=== PATIENT | male | born 1990 | race Caucasian/White ===

== ENCOUNTER 2020-01-03 08:00 | Outpatient (RCR) | payer OTHER, SELFPAY ==
--- NOTE | 2020-02-06 07:22 | MHC.PT.DC ---
[facility] [place] Office [place] Office [place] Office [address] Claudia Altamirano [address] [phone] F: [phone] F: [phone] F: [phone] F: [phone] Physical Therapy Discharge Report Diagnosis: Date of Surgery: NA Date of Evaluation: 12/19/19 Date of Discharge: Treatments to Date: 4 Cancellations to Date: 1 No Shows to Date: 0 Discharge Status: Visit Non-compliance Discharge Summary: Pt decided to not follow up with future appts. Electronically signed by: Dillan Zavaleta PT Please sign and return to therapist. Thank you for your referral.
== END 2020-02-06 07:25 | disposition home or self-care (01) ==
LOC: HO.PTCHIC 08:00
PROVIDERS: PCP Internal Medicine; Visit Provider Internal Medicine
DX: M54.2 Cervicalgia (principal); R12 Heartburn
CPT/HCPCS: 97110; 97140

== ENCOUNTER 2020-01-03 09:16 | Outpatient (REF) | payer OTHER, SELFPAY ==
--- NOTE | 2020-01-03 | FL_ITS ---
EXAMINATION: XR FLUOROSCOPY UPPER GI WITH AIR CLINICAL INFORMATION: Heartburn COMPARISON: None TECHNIQUE: Upper GI was performed using thin and thick barium and effervescent granules. FINDINGS: There is mild gastroesophageal reflux. The esophagus is otherwise unremarkable. No hernia, mucosal irregularity, mass or stricture is seen. The stomach and duodenum are normal-appearing. No fold thickening, mass, ulcer or stricture is seen. FLUOROSCOPY TIME: 0.8 minutes DOSE AREA PRODUCT: 10.2 Alvarado per centimeter squared. 43 mgy total dose. 25 saved fluoroscopic images. IMPRESSION: Gastroesophageal reflux otherwise unremarkable exam.
== END 2020-01-03 09:17 | disposition home or self-care (01) ==
LOC: HO.XRAY 09:16
PROVIDERS: PCP Internal Medicine; Visit Provider Internal Medicine
DX: R12 Heartburn (principal)
CPT/HCPCS: 74246

== ENCOUNTER 2020-02-18 10:33 | Outpatient (REF) | payer OTHER, SELFPAY ==
[2020-02-18 14:32] LABS: Alanine Aminotransferase 19 U/L (0-40); Albumin Level 4.6 g/dL (3.5-5.0); Alkaline Phosphatase 68 U/L (39-117); Anion Gap 15 (12-20); Aspartate Amino Transferase 14 U/L (5-37); Bilirubin Total 0.5 mg/dL (0.0-1.0); Blood Urea Nitrogen 11 mg/dL (9-16); Calcium 9.2 mg/dL (8.4-10.2); Carbon Dioxide 26 mmol/L (22-29); Chloride 105 mmol/L (96-108); Cholesterol 173 mg/dL; Estimated Glomerular Filt Rate > 60; Glucose Fasting 81 mg/dL (60-99); HDL Cholesterol 35 mg/dL; LDL Cholesterol Calculated 127 mg/dl; Potassium 4.7 mmol/l (3.3-5.1); Sodium 141 mmol/L (135-145); Total Protein 7.4 g/dL (6.5-8.0); Triglycerides 55 mg/dL
[2020-02-25 14:52] LABS: Testosterone, Free 77.3 pg/mL (35.0-155.0); Testosterone, Total 477 ng/dL (250-1100)
== END 2020-02-18 10:34 | disposition home or self-care (01) ==
LOC: HO.HMGCLDS 10:33
PROVIDERS: PCP Internal Medicine; Visit Provider Internal Medicine
DX: E66.01 Morbid (severe) obesity due to excess calories (principal); R12 Heartburn; Z00.01 Encounter for general adult medical examination with abnormal findings; N52.9 Male erectile dysfunction, unspecified
CPT/HCPCS: 80053; 80061; 84402; 84403; 84443

== ENCOUNTER → 2020-12-29 10:25 | Outpatient (BNVA) | payer OTHER, SELFPAY | PROVIDERS: PCP Internal Medicine; Referring Provider Internal Medicine; Visit Provider Psychiatry & Neurology Neurology ==

== ENCOUNTER → 2021-02-15 19:30 | Outpatient (REF) | payer OTHER, SELFPAY | LOC: HO.SL 19:30 | PROVIDERS: PCP Internal Medicine; Visit Provider Psychiatry & Neurology Neurology | DX: E66.01 Morbid (severe) obesity due to excess calories (principal); R06.81 Apnea, not elsewhere classified; R06.83 Snoring | CPT/HCPCS: 95810 ==

== ENCOUNTER 2021-03-28 09:07 | Outpatient (REF) | payer OTHER, SELFPAY ==
[2021-03-28 09:47] LABS: Binax Internal Control QC Valid; Binax Lot number: 9864; Binax Now Covid-19 Ag Negative (Negative)
== END 2021-03-28 09:08 | disposition home or self-care (01) ==
LOC: HO.LAB 09:07
PROVIDERS: Visit Provider Internal Medicine
DX: Z20.822 Contact with and (suspected) exposure to COVID-19 (principal)
CPT/HCPCS: 36415; C9803

== ENCOUNTER 2021-04-06 14:59 | Outpatient (REF) | payer OTHER, SELFPAY ==
[2021-04-06 16:11] LABS: MANUAL DIFF FLAG NO
[2021-04-06 16:25] LABS: Basophils Absolute Auto 0.1 X10*3/uL (0.0-0.2); Basophils Percent Auto 0.7 % (0-2); Eosinophils Absolute Auto 0.5 X10*3/uL (0.0-0.4); Hematocrit 47.9 % (42.0-52.0); Hemoglobin 15.5 g/dl (14.0-18.0); Imm Gran Abs Auto 0.04 X10*3/uL (0.00-0.03); Imm Gran Pct Auto 0.4 % (0.0-0.4); Lymphocytes Absolute Auto 3.1 X10*3/uL (1.2-4.9); Lymphocytes Percent Auto 32.7 % (20-40); Mean Corpuscular HGB Conc 32.4 g/dl (31.0-36.0); Mean Corpuscular Hemoglobin 28.3 pg (27.0-33.0); Mean Corpuscular Volume 87.6 fL (80.0-98.0); Mean Platelet Volume 9.9 fL (9.4-12.4); Monocytes Absolute Auto 0.9 X10*3/uL (0.1-1.2); Monocytes Percent Auto 9.3 % (2-11); Neutrophils Absolute Auto 4.9 x10*3/uL (2.0-8.3); Neutrophils Percent Auto 51.9 % (45-73); Platelet Count 381 X10*3/uL (160-400); Red Blood Count 5.47 X10*6/uL (4.60-5.80); Red Cell Distribution Width 12.9 % (11.0-16.0); White Blood Count 9.5 X10*3/uL (4.8-10.8)
[2021-04-06 16:50] LABS: Alanine Aminotransferase 20 U/L (0-40); Albumin Level 4.2 g/dL (3.5-5.0); Alkaline Phosphatase 62 U/L (39-117); Anion Gap 9 (12-20); Aspartate Amino Transferase 11 U/L (5-37); Bilirubin Total 0.3 mg/dL (0.0-1.0); Blood Urea Nitrogen 12 mg/dL (9-16); Calcium 9.8 mg/dL (8.4-10.2); Carbon Dioxide 32 mmol/L (22-29); Chloride 105 mmol/L (96-108); Estimated Glomerular Filt Rate > 60; Glucose Random 86 mg/dL (60-115); Potassium 4.8 mmol/L (3.3-5.1); Sodium 141 mmol/L (135-145); Total Protein 7.3 g/dL (6.5-8.0)
[2021-04-06 17:18] LABS: Ferritin 103 ng/mL (20-250)
[2021-04-06 17:23] LABS: Thyroid Stimulating Hormone 1.17 uIU/mL (0.32-4.0)
== END 2021-04-06 15:00 | disposition home or self-care (01) ==
LOC: HO.LAB 14:59
PROVIDERS: PCP Internal Medicine; Referring Provider Internal Medicine; Visit Provider Psychiatry & Neurology Neurology
DX: G47.61 Periodic limb movement disorder (principal); E66.01 Morbid (severe) obesity due to excess calories; G25.81 Restless legs syndrome; Z87.891 Personal history of nicotine dependence
CPT/HCPCS: 36415; 80053; 82728; 84443; 85025

== ENCOUNTER → 2021-07-06 14:38 | Outpatient (BNVA) | payer OTHER, SELFPAY | PROVIDERS: PCP Internal Medicine; Visit Provider Psychiatry & Neurology Neurology | DX: Z13.89 Encounter for screening for other disorder (principal) ==

== ENCOUNTER 2022-06-14 16:14 | Outpatient (AMB) | payer OTHER, SELFPAY ==
--- NOTE | 2022-06-14 16:09 | MHC.PC.OV ---
Intake Visit Reasons: f/u depression/anxiety android [phone] Intake Note: Pt is having a telehealth visit to f/u depression/anxiety Allergies No Known Allergies Allergy (Verified 06/14/22 16:09) Medication List - Last Reconciled 06/14/22 by Jennifer Paul MD buspirone 10 mg PO TID magnesium oxide 400 mg PO DAILY omeprazole 20 mg PO DAILY sildenafil 100 mg PO DAILY PRN Tobacco use date assessed: 06/14/22 HPI f/u depression/anxiety android [phone] HPI Details Tele health visit made with 33-year-old male, here to follow-up on his depression and anxiety disorder currently on BuSpar 10 mg taken 1 tablet 3 times a day, which patient states has been helping [facility] Medical History Anxiety and depression Cervicalgia Erectile dysfunction Heartburn Loud snoring Morbid obesity Surgical History History of adenectomy History of tonsillectomy Family History Father HTN (hypertension) Asthma Crohn's disease Substance use disorder Sleep apnea Mother Bipolar disorder Substance use disorder Mental health disorder COPD (chronic obstructive pulmonary disease) Sister No problems noted. Social History Housing: Apartment Alcohol intake: current Alcohol intake frequency: a few times a month Patient Tobacco Use Status: Former Tobacco user Years Smoked: ages [age] havent smoked since e-Cigarette/Vaping Use: Never Used service: No Current occupational status: employed Cognitive needs: No Hearing needs: No Vision needs: Yes Questionnaire PHQ-9 Over the last 2 weeks, how often have you been bothered by any of the following problems? 1. Little interest or pleasure in doing things: not at all 2. Feeling down, depressed, or hopeless: not at all 3. Trouble falling or staying asleep, or sleeping too much: not at all 4. Feeling tired or having little energy: several days 5. Poor appetite or overeating: several days 6. Feeling bad about yourself - or that you are a failure or have let yourself or your family down: not at all 7. Trouble concentrating on things, such as reading the newspaper or watching television: not at all 8. Moving or speaking so slowly that other people could have noticed. Or the opposite - being so fidgety or restless that you have been moving around a lot more than usual: not at all 9. Thoughts that you would be better off or of hurting yourself in some way: not at all Total score: 2 Depression Screening Interpretation: Positive (Stable on current treatment) Depression Screening Follow-up: Existing condition and In treatment Source: Developed by Drs. Itz Haynes, Julia Jaun, Darion Angeles and colleagues, with an educational edward from [employer]. Thrive Questionnaire Declines Thrive assessment: No Date Thrive assessed: 06/14/22 I am a: Patient What is your living situation today?: I have a steady place to live Within the past 12 months, did the food you bought not last and you didn't have the money to get more?: Never true Within the past 12 months, did you worry whether your food would run out before you got money to buy more?: Never true Do you have trouble paying for medicines?: No Do you have trouble getting transportation to medical appointments?: No Do you have trouble paying your heating and electricity bill?: No Do you have trouble taking care of your child, family member or friend?: No Do you have trouble with day-to-day activities such as bathing, preparing meals, shopping, managing finances, etc.?: No Are you currently unemployed and looking for a job?: No Are you interested in more education?: No AUDIT C Alcohol Use Questionnaire (AUDIT-C) 1. How often do you have a drink containing alcohol?: 2-3 times a week 2. How many drinks containing alcohol do you have on a typical day when you are drinking?: 1 or 2 3. How often do you have six or more drinks on one occasion?: Never Total Score: 3 CARLOS-7 AMB Questionnaire CARLOS-7 Date CARLOS - 7 assessed: 06/14/22 Feeling nervous, anxious, or on edge: 1 = Several days Not being able to stop or control worryin = Not at all Worrying too much about different things: 0 = Not at all Trouble relaxin = Not at all Being so restless that it is hard to sit still: 0 = Not at all Becoming easily annoyed or irritable: 1 = Several days Feeling afraid as if something awful might happen: 0 = Not at all Total CARLOS-7 score (0-4 normal; 5-9 mild; 10-14 moderate; 15-21 severe): 2 Source: Developed by Drs. Itz Haynes, Julia Juan, Darion Angeles and colleagues, with an educational edward from [employer]. CARLOS-7 Assessment Billing CARLOS-7 Assessment Tool: CARLOS-7 Assessment 85288 Review of Systems Const Reports no additional complaints ENT Reports no additional complaints Card Denies chest pain, Denies lightheadedness and Denies dyspnea Resp Denies chest congestion, Denies cough and Denies dyspnea GI Reports no additional complaints and Denies heartburn Reports no additional complaints Psych Reports as per HPI Physical exam (Primary Care) Tobacco/Smoking Status: Tobacco use Status Tobacco use date assessed 06/14/22 06/14/22 16:14 Patient Tobacco Use Status Former Tobacco user 06/14/22 16:14 e-Cigarette/Vaping Use Never Used 06/14/22 16:14 PHQ-9: PHQ-9 Score PHQ-9: Total score 2 09/17/23 21:30 Depression Screening Interpretation: Positive (Stable on current treatment) Depression Screening Follow-up: Existing condition and In treatment Thrive Assessment: Date of Thrive Assessment Date Thrive assessed 06/14/22 06/14/22 16:14 Telehealth Telehealth Location of provider rendering services: practice address Location of patient: address on file Patient Identification confirmed using: Name, : Yes Telehealth method: video Patient verbally consented to treatment: Yes Patient verbally consented to billing insurance company: Yes Patient informed of any privacy concerns related to visit: Yes Minutes spent on Phone/Video with Pt.: 15 Assessment and Plan Assessment & Plan (1) Anxiety and depression: Code(s): F41.9 - Anxiety disorder, unspecified; F32.A - Depression, unspecified Plan: Doing well on buspirone, 10 mg taken 1 tablet 3 times a day. Refill sent Medications: Refilled buspirone 10 mg PO TID 90 tabs 5RF F41.9 - Anxiety disorder, unspecified, F32.A - Depression, unspecified Coding Level of Care Code Tele Est Pt Level 3 (17351) Diagnoses Anxiety and depression F41.9; F32.A Additional Codes CARLOS-7 Assessment Billing - CARLOS-7 Assessment Tool: CARLOS-7 Assessment 43474 ([id number])
== END 2022-06-14 17:00 | disposition home or self-care (01) ==
LOC: HO.HMGC 16:14
PROVIDERS: PCP Internal Medicine; Visit Provider Internal Medicine
DX: F41.9 Anxiety disorder, unspecified (principal); F32.A Depression, unspecified
CPT/HCPCS: 99499

== ENCOUNTER 2023-09-20 12:58 | Outpatient (AMB) | payer BC, SELFPAY ==
--- NOTE | 2023-09-20 13:07 | MHC.PC.OV ---
Vital Signs 09/20/23 13:10 Height 5 ft 8 in Weight 372 lb BMI 56.6 BP 118/80 Blood Pressure Location Lt brachial Position Sitting Pulse 93 Pulse Source Pulse Oximeter Pulse Oximetry (%) 98 Oxygen Delivery Method Room Air Intake Visit Reasons: Follow up meds Intake Note: Pt is here today f/u meds and c/o bilateral knee discomfort Allergies No Known Allergies Allergy (Verified 09/20/23 13:31) Medication List - Last Reconciled 09/20/23 by Jennifer Paul MD buspirone 10 mg PO TID magnesium oxide 400 mg PO DAILY omeprazole 20 mg PO DAILY sildenafil 100 mg PO DAILY PRN Tobacco use date assessed: 09/20/23 Dental Screening Dental Screen Date: 09/20/23 Did you have a dental visit in the last 12 months?: No Was dental information given to patient?: No HPI Follow up meds HPI Details 33-year-old male with anxiety depression, here today for follow-up. Has been taking buspirone 10 mg 3 times a day which has been helping control his anxiety depression. Denies any adverse reactions when taking medication. He is here today complaining of numbness and tingling on anterior aspect of left knee, which started after working at [employer] where he is on his feet all day, 5 days a week. He also thinks that he might be compensating for this by putting more of his weight on his right side now has pain and stiffness in his right ankle. Has been taking ibuprofen which affords temporary relief [facility] Medical History Anxiety and depression Loud snoring Erectile dysfunction Cervicalgia Heartburn Morbid obesity Surgical History History of adenectomy History of tonsillectomy Family History Father HTN (hypertension) Asthma Crohn's disease Substance use disorder Sleep apnea Mother Bipolar disorder Substance use disorder Mental health disorder COPD (chronic obstructive pulmonary disease) Sister No problems noted. Social History Housing: Apartment Alcohol intake: current Alcohol intake frequency: a few times a month Patient Tobacco Use Status: Former Tobacco user Years Smoked: ages [age] havent smoked since e-Cigarette/Vaping Use: Never Used service: No Current occupational status: employed Cognitive needs: No Hearing needs: No Vision needs: Yes Questionnaire PHQ-9 Over the last 2 weeks, how often have you been bothered by any of the following problems? 1. Little interest or pleasure in doing things: several days 2. Feeling down, depressed, or hopeless: not at all 3. Trouble falling or staying asleep, or sleeping too much: several days 4. Feeling tired or having little energy: several days 5. Poor appetite or overeating: not at all 6. Feeling bad about yourself - or that you are a failure or have let yourself or your family down: not at all 7. Trouble concentrating on things, such as reading the newspaper or watching television: several days 8. Moving or speaking so slowly that other people could have noticed. Or the opposite - being so fidgety or restless that you have been moving around a lot more than usual: not at all 9. Thoughts that you would be better off or of hurting yourself in some way: not at all Total score: 4 Depression Screening Interpretation: Positive (Better controlled on buspirone takes 10 mg 1 tablet 3 times a day) Depression Screening Follow-up: Existing condition and In treatment Depression Screening Done: Yes 19043 - PHQ-9 Billing: Yes Source: Developed by Drs. Itz Haynes, Julia Juan, Darion Angeles and colleagues, with an educational edward from [employer]. Thrive Questionnaire Date Thrive assessed: 09/20/23 I am a: Patient What is your living situation today?: I have a steady place to live Within the past 12 months, did the food you bought not last and you didn't have the money to get more?: Never true Within the past 12 months, did you worry whether your food would run out before you got money to buy more?: Never true Do you have trouble paying for medicines?: No Do you have trouble paying your heating and electricity bill?: No Do you have trouble taking care of your child, family member or friend?: No Do you have trouble with day-to-day activities such as bathing, preparing meals, shopping, managing finances, etc.?: No Are you currently unemployed and looking for a job?: No Are you interested in more education?: No THRIVE Score: 0 AUDIT C Alcohol Use Questionnaire (AUDIT-C) 1. How often do you have a drink containing alcohol?: 2-3 times a week 2. How many drinks containing alcohol do you have on a typical day when you are drinking?: 1 or 2 3. How often do you have six or more drinks on one occasion?: Never Total Score: 3 CARLOS-7 AMB Questionnaire CARLOS-7 Date CARLOS - 7 assessed: 09/20/23 Feeling nervous, anxious, or on edge: 1 = Several days Not being able to stop or control worryin = Not at all Worrying too much about different things: 0 = Not at all Trouble relaxin = Not at all Being so restless that it is hard to sit still: 0 = Not at all Becoming easily annoyed or irritable: 0 = Not at all Feeling afraid as if something awful might happen: 0 = Not at all Total CARLOS-7 score (0-4 normal; 5-9 mild; 10-14 moderate; 15-21 severe): 1 Source: Developed by Drs. Itz Haynes, Julia Juan, Darion Angeles and colleagues, with an educational edward from [employer]. CARLOS-7 Assessment Billing CARLOS-7 Assessment Tool: CARLOS-7 Assessment 01004 Review of Systems Const Reports as per HPI, Denies headache(s) and Reports weight gain (70 lb in 7 months) ENT Denies dizziness, Denies headache(s), Denies nasal congestion and Denies post nasal drip Card Denies chest pain, Denies irregular heart rhythm and Denies leg edema Resp Reports no additional complaints GI Reports no additional complaints Reports no additional complaints Musc Reports as per HPI Neuro Denies dizziness and Denies headache(s) Psych Reports as per HPI Physical exam (Primary Care) Vital Signs: Last Vital Signs Pulse 93 09/20/23 13:10 BP 118/80 09/20/23 13:10 Pulse Ox 98 09/20/23 13:10 Oxygen Delivery Method Room Air 09/20/23 13:10 BMI result Body Mass Index 56.6 Tobacco/Smoking Status: Tobacco use Status Tobacco use date assessed 09/20/23 09/20/23 13:15 Patient Tobacco Use Status Former Tobacco user 09/20/23 13:09 e-Cigarette/Vaping Use Never Used 09/20/23 13:09 Depression Screening Interpretation: Positive (Better controlled on buspirone takes 10 mg 1 tablet 3 times a day) Depression Screening Follow-up: Existing condition and In treatment Thrive Assessment: Date of Thrive Assessment Date Thrive assessed 09/20/23 09/20/23 13:15 Const Other: Alert oriented x3, no acute distress noted ambulatory normal gait, morbidly obese Neck Neck: Yes full ROM, Yes no lymphadenopathy and Yes supple Resp Auscultation: clear to auscultation bilaterally Cardio Other: S1-S2 present regular rate and rhythm Extrem Other: No gross bone deformity, no drugs no joint swelling seen, positive crepitus in both knees Psych Appearance: grossly normal and well kempt Mental Status: mental status grossly normal Speech and movement: Normal speech and movement present Affect: normal affect Thought process: Normal thought process present Thought content: Normal thought content present Assessment and Plan Assessment & Plan (1) Arthropathy of knee: Code(s): M17.10 - Unilateral primary osteoarthritis, unspecified knee Plan: Ordered x-ray of left knee, try massaging diclofenac gel to affected joint 3 times a day as needed, may take alternating dose of Tylenol and ibuprofen, but advised patient not to take ibuprofen when using gel (2) Anxiety and depression: Code(s): F41.9 - Anxiety disorder, unspecified; F32.A - Depression, unspecified Plan: Doing well on buspirone 10 mg taken 1 tablet 3 times a day, will continue, refill sent. Orders: Orders XR knee LT 4V Today M17.10 - Unilateral primary osteoarthritis, unspecified knee Medications: Changed From buspirone Schedule next PCP appt for future refills 10 mg PO TID 90 tabs 5RF F32.A - Depression, unspecified, F41.9 - Anxiety disorder, unspecified To buspirone Schedule next PCP appt for future refills 10 mg PO TID 3 months 270 tabs 3RF F32.A - Depression, unspecified, F41.9 - Anxiety disorder, unspecified Coding Level of Care Code Est Pt Level 4 (17026) Diagnoses Arthropathy of knee M17.10 Anxiety and depression F41.9; F32.A Additional Codes CARLOS-7 Assessment Billing - CARLOS-7 Assessment Tool: CARLOS-7 Assessment 39444 ([id number])
[2023-09-20 13:10] VITALS: BP 118/80; PULSE 93; O2SAT 98; BMI 56.6
== END 2023-09-20 14:40 | disposition home or self-care (01) ==
PROVIDERS: PCP Internal Medicine; Visit Provider Internal Medicine
DX: M17.12 Unilateral primary osteoarthritis, left knee (principal); F41.9 Anxiety disorder, unspecified; F32.A Depression, unspecified
CPT/HCPCS: 99214

== ENCOUNTER 2023-09-20 13:46 | Outpatient (REF) | payer BC, SELFPAY ==
--- NOTE | ~2023-09-20 | XR_ITS ---
EXAMINATION: XR KNEE, LEFT CLINICAL INFORMATION: Unilateral primary osteoarthritis. COMPARISON: None available. TECHNIQUE: Four views of the left knee. FINDINGS: Trace joint effusion. Mild narrowing of the medial compartment. Tiny tricompartmental osteophytes. XR/XR knee LT 4V IMPRESSION: Mild degenerative changes.
== END 2023-09-20 13:47 | disposition home or self-care (01) ==
LOC: HO.HMGCX 13:46
PROVIDERS: PCP Internal Medicine; Visit Provider Internal Medicine
DX: M17.10 Unilateral primary osteoarthritis, unspecified knee (principal)
CPT/HCPCS: 73564

== ENCOUNTER 2024-02-02 15:03 | Outpatient (AMB) | payer BC, SELFPAY ==
[2024-02-02 15:06] VITALS: BP 118/80; PULSE 88; O2SAT 98; BMI 53.7
--- NOTE | 2024-02-02 15:06 | A.OFFPC_ITS ---
Vital Signs 02/02/24 15:06 Height 5 ft 8 in Weight 353 lb BMI 53.7 BP 118/80 Blood Pressure Location Rt brachial Position Sitting Pulse 88 Pulse Source Pulse Oximeter Pulse Oximetry (%) 98 Intake Visit Reasons: PE Intake Note: pt is here for PE Mental Health Therapist Required: No Accompanied by: Self / Same As Patient Allergies No Known Allergies Allergy (Verified 02/02/24 15:06) Medication List - Last Reconciled 02/02/24 by Susan Palm NP buspirone 10 mg PO TID 3 months Tobacco use date assessed: 09/20/23 Dental Screening Dental Screen Date: 09/20/23 HPI HPI Comments History of Present Illness Details 33 y/o male patient who presents for PE. Patient of Dr. Paul. Pmhx significant for Morbid Obesity, and Anxiety/Depression. Pt c/o B/L hips, Knees and feet pain due to Obesity. He has noticed that his walking has been off, because his feet hurt. Wondering if he needs to be evaluated by Podiatry for Flat Feet. Had Sleep study on 01/2021 and was told he did not have LAZARA. [facility] Medical History (Updated 02/02/24 @ 15:41 by Susan Palm NP) Arthralgia of both feet Encounter for routine adult health examination without abnormal findings Anxiety and depression Loud snoring Erectile dysfunction Cervicalgia Heartburn Morbid obesity Surgical History History of adenectomy History of tonsillectomy Family History Father HTN (hypertension) Asthma Crohn's disease Substance use disorder Sleep apnea Mother Bipolar disorder Substance use disorder Mental health disorder COPD (chronic obstructive pulmonary disease) Sister No problems noted. Social History Housing: Apartment Alcohol intake: current Alcohol intake frequency: a few times a month Patient Tobacco Use Status: Former Tobacco user Years Smoked: ages [age] havent smoked since e-Cigarette/Vaping Use: Never Used service: No Current occupational status: employed Cognitive needs: No Hearing needs: No Vision needs: Yes Questionnaire PHQ-9 Over the last 2 weeks, how often have you been bothered by any of the following problems? 1. Little interest or pleasure in doing things: several days 2. Feeling down, depressed, or hopeless: several days 3. Trouble falling or staying asleep, or sleeping too much: not at all 4. Feeling tired or having little energy: several days 5. Poor appetite or overeating: several days 6. Feeling bad about yourself - or that you are a failure or have let yourself or your family down: more than half the days 7. Trouble concentrating on things, such as reading the newspaper or watching television: several days 8. Moving or speaking so slowly that other people could have noticed. Or the opposite - being so fidgety or restless that you have been moving around a lot more than usual: several days 9. Thoughts that you would be better off or of hurting yourself in some way: not at all Total score: 8 Depression Screening Interpretation: Negative Depression Screening Done: Yes 73387 - PHQ-9 Billing: Yes Source: Developed by Drs. Itz Haynes, Julia Juan, Darion Angeles and colleagues, with an educational edward from [employer] Thrive Questionnaire Date Thrive assessed: 02/02/24 I am a: Patient What is your living situation today?: I have a steady place to live Within the past 12 months, did the food you bought not last and you didn't have the money to get more?: Never true Within the past 12 months, did you worry whether your food would run out before you got money to buy more?: Never true Do you have trouble paying for medicines?: No Do you have trouble getting transportation to medical appointments?: No Do you have trouble paying your heating and electricity bill?: No Do you have trouble taking care of your child, family member or friend?: No Do you have trouble with day-to-day activities such as bathing, preparing meals, shopping, managing finances, etc.?: Yes Are you currently unemployed and looking for a job?: No Are you interested in more education?: No Please select the resources that you would like help with: None Currently or been in a relationship where the following occur: Controlled Emotionally THRIVE Score: 1 AUDIT C Alcohol Use Questionnaire (AUDIT-C) 1. How often do you have a drink containing alcohol?: 2-4 times a month 2. How many drinks containing alcohol do you have on a typical day when you are drinking?: 3 or 4 3. How often do you have six or more drinks on one occasion?: Less than monthly Total Score: 4 Score Reviewed/Action Taken: Yes CARLOS-7 AMB Questionnaire CARLOS-7 Date CARLOS - 7 assessed: 02/02/24 Feeling nervous, anxious, or on edge: 2 = More than half the days Not being able to stop or control worryin = Several days Worrying too much about different things: 1 = Several days Trouble relaxin = More than half the days Being so restless that it is hard to sit still: 1 = Several days Becoming easily annoyed or irritable: 3 = Nearly every day Feeling afraid as if something awful might happen: 3 = Nearly every day Total CARLOS-7 score (0-4 normal; 5-9 mild; 10-14 moderate; 15-21 severe): 13 Source: Developed by Drs. Itz Haynes, Julia Juan, Darion Angeles and colleagues, with an educational edward from [employer] CARLOS-7 Assessment Billing CARLOS-7 Assessment Tool: CARLOS-7 Assessment 99226 Review of Systems Const All systems reviewed & are unremarkable except as noted in HPI and below Physical exam (Primary Care) Vital Signs: Last Vital Signs Pulse 88 02/02/24 15:06 BP 118/80 02/02/24 15:06 Pulse Ox 98 02/02/24 15:06 BMI result Body Mass Index 53.7 Tobacco/Smoking Status: Tobacco use Status Tobacco use date assessed 09/20/23 02/02/24 15:07 Patient Tobacco Use Status Former Tobacco user 02/02/24 15:07 e-Cigarette/Vaping Use Never Used 02/02/24 15:07 PHQ-9: PHQ-9 Score PHQ-9: Total score 8 02/02/24 15:14 Depression Screening Interpretation: Negative Thrive Assessment: Date of Thrive Assessment Date Thrive assessed 02/02/24 02/02/24 15:07 Currently or been in a relationship where the following occur: Controlled Emotionally Const General: comfortable and no acute distress Nutritional Appearance: obese centrally obese Orientation/consciousness: patient oriented x3 HENMT Head: Yes normocephalic Ears: external ears normal and TM's normal bilaterally General nose exam: Normal external nose present Face and sinus: Yes sinuses nontender Mouth: moist mucous membranes Throat: Yes posterior oropharynx normal Eyes Pupils: Equal, round and reactive pupils present EOM: EOMs intact bilaterally Direct Ophthalmoscopy: normal light reflex Neck Neck: Yes full ROM Resp Effort & Inspection: normal respiratory effort and able to speak in complete sentences Auscultation: clear to auscultation bilaterally and diminished lung sounds (Due to large body Habitus) Cardio Heart sounds: S1 normal heart sound present and S2 normal heart sound present GI Other: Exam limited due to large Body Habitus. Inspection: Yes Abdominal panniculus present and Yes obesity Palpation (GI): Soft to palpation Auscultation: normal bowel sounds General: Yes deferred Skin General skin exam: no rashes or lesions noted Neuro General: patient oriented x3 and moves all extremities Cranial nerves: Yes Equal, round and reactive pupils present Gait exam (Neuro): Wide-based gait present (Due to central obesity) Motor exam (neuro): 5/5 motor strength present throughout Extrem General: Yes full ROM Psych Speech and movement: Normal speech and movement present Coding Level of Care Code Est Pt Prev Care 18-39y([id number]) Diagnoses Encounter for routine adult health examination without abnormal findings Z00.00 Anxiety and depression F41.9; F32.A Morbid obesity E66.01 Arthralgia of both feet M25.571; M25.572 Additional Codes CARLOS-7 Assessment Billing - CARLOS-7 Assessment Tool: CARLOS-7 Assessment 06763 ([id number]) PHQ-9 - 72989 - PHQ-9 Billing: Yes ([id number]) Time Spent (min) 30 Assessment & Plan Assessment & Plan (1) Encounter for routine adult health examination without abnormal findings: Code(s): Z00.00 - Encounter for general adult medical examination without abnormal findings Category: Medical Plan: Morbidly obese. (2) Anxiety and depression: Code(s): F41.9 - Anxiety disorder, unspecified; F32.A - Depression, unspecified Category: Medical Plan: Well managed on current regiment. (3) Morbid obesity: Code(s): E66.01 - Morbid (severe) obesity due to excess calories Category: Medical Plan: Lifestyle changes; weight loss, healthy diet and exercise. (4) Arthralgia of both feet: Code(s): M25.571 - Pain in right ankle and joints of right foot; M25.572 - Pain in left ankle and joints of left foot Category: Medical Plan: Referred to Podiatry Orders: Referrals Podiatry Referral M25.571 - Pain in right ankle and joints of right foot, M25.572 - Pain in left ankle and joints of left foot Medications: Refilled buspirone Schedule next PCP appt for future refills 10 mg PO TID 3 months 270 tabs 3RF F32.A - Depression, unspecified, F41.9 - Anxiety disorder, unspecified Discontinued omeprazole Discontinued Reason: Patient Completed Course 20 mg PO DAILY 90 caps 0RF sildenafil administer 30 minutes to 4 hours before activity Discontinued Reason: Patient Completed Course 100 mg PO DAILY PRN 10 tabs 0RF sexual activity magnesium oxide Discontinued Reason: Patient Completed Course 400 mg PO DAILY 30 caps 3RF
== END 2024-02-02 16:07 | disposition home or self-care (01) ==
PROVIDERS: PCP Internal Medicine; Visit Provider Nurse Practitioner Family
DX: Z00.00 Encounter for general adult medical examination without abnormal findings (principal); E66.01 Morbid (severe) obesity due to excess calories; Z68.43 Body mass index [BMI] 50.0-59.9, adult; F41.9 Anxiety disorder, unspecified; F32.A Depression, unspecified; M25.571 Pain in right ankle and joints of right foot; M25.572 Pain in left ankle and joints of left foot

== ENCOUNTER → 2024-02-02 15:03 | Outpatient (BNVA) | payer BC, SELFPAY | PROVIDERS: PCP Internal Medicine; Visit Provider Nurse Practitioner Family | DX: Z00.00 Encounter for general adult medical examination without abnormal findings (principal); F41.9 Anxiety disorder, unspecified; F32.A Depression, unspecified; E66.01 Morbid (severe) obesity due to excess calories; Z68.43 Body mass index [BMI] 50.0-59.9, adult; M25.571 Pain in right ankle and joints of right foot; M25.572 Pain in left ankle and joints of left foot | CPT/HCPCS: 96127 ==